=== PATIENT | female | born 1955 | race Caucasian/White ===

== ENCOUNTER 2022-01-13 13:59 | Emergency (ER) | payer MEDICARE, OTHER, SELFPAY ==
[2022-01-13 14:17] VITALS: BP 157/63; PULSE 96; RESP 17; TEMP 36.6; O2SAT 96; BMI 29.2
[2022-01-13 14:39] LABS: Appearance Urine UA CLEAR; Bilirubin Urine UA 1+ (NEGATIVE); Color Urine UA YELLOW; Glucose Urine UA NEGATIVE (Negative); Ketones Urine UA 1+ (NEGATIVE); Leukocyte Esterase Urine UA NEGATIVE (NEGATIVE); Nitrite Urine UA NEGATIVE (Negative); Occult Blood Urine UA NEGATIVE (Negative); Protein Urine UA 1+ (Negative); Specific Gravity Urine UA 1.015 (1.000-1.035); pH Urine UA 5.5 (4.5-8.0)
[2022-01-13 14:41] LABS: Ictotest Urine Negative (Negative)
[2022-01-13 14:54] LABS: Bacteria Urine Few (2-10); Culture Indicated Urine Cult Not Indicated; Hyaline Casts Urine 1-5/LPF; Mucus Urine 1+ (Negative); RBC Urine None Seen (0-5/HPF); Squamous Epithelial Cell Urine 0-1 /HPF (0-5/HPF); WBC Urine 0-1/HPF (0-5/HPF)
[2022-01-13 16:00] LABS: Hematocrit 29.1 % (36-46); Hemoglobin 9.6 g/dL (12.0-16.0); Mean Corpuscular HGB Conc 33.1 % (30-36); Mean Corpuscular Hemoglobin 24.6 PG (26-34); Mean Corpuscular Volume 74.5 fL (80-100); Platelet Count 60 X10^3/uL (150-400); Red Blood Cell Count 3.91 X10^6/uL (4.0-5.2)
[2022-01-13 16:06] LABS: Add Manual Diff / Slide Review YES
[2022-01-13 16:07] LABS: White Blood Cell Count 1.3 X10^3/uL (4.5-11.0)
[2022-01-13 16:08] LABS: Alanine Aminotransferase 28 IU/L (<35); Albumin 3.6 g/dL (3.5-5.0); Albumin Globulin Ratio 1.4 (1.0-2.8); Alkaline Phosphatase 97 U/L (38-126); Aspartate Aminotransferase 48 IU/L (14-36); BUN Creatinine Ratio 21.9 (6-22); Bilirubin Total 0.8 mg/dL (0.2-1.3); Blood Urea Nitrogen 16 mg/dL (7-17); Calcium 8.6 mg/dL (8.4-10.2); Carbon Dioxide 27 mmol/L (22-32); Chloride 93 mmol/L (98-107); Estimated Glomerular Filt Rate > 60 mL/min (>60); Globulin 2.5 g/dL (1.7-4.1); Glucose 82 mg/dL (80-110); HEMOLYSIS < 15 (0-50); Lipase 71 U/L (23-300); Potassium 4.2 mmol/L (3.4-5.1); Sodium 131 mmol/L (137-145); Total Protein 6.1 g/dL (6.3-8.2)
[2022-01-13 16:26] LABS: Neutrophils Absolute Manual 650 /uL (3000-5900); Total Cells Counted 50
[2022-01-13 16:27] LABS: Microcytosis 1+; Platelet Estimate Decreased on smear; Polychromasia 1+; RBC Morphology Normal Morphology
--- NOTE | 2022-01-13 16:31 | ED_ITS ---
HPI - Abdominal Pain General Chief Complaint: Abdominal Pain Stated Complaint: sent by UC, Abd mass per pt, chills, abd pain, h-a Time Seen by Provider: 01/13/22 15:58 Source: patient Mode of arrival: Ambulatory History of Present Illness HPI narrative: Patient is a 66-year-old female who presents with generalized weakness chills and some abdominal pain. She was referred here by the walk-in clinic concern for possible left upper quadrant mass. She says that the last week and half she has had some night sweats, she has been generally weak. She has had some difficulty walking. She has no nausea or vomiting. She generally does not feel. She also complains of some headache she has significant urinary urgency in the morning so much so that she sometimes does not make it to the toilet. Related Data Home Medications Medication Instructions Recorded Confirmed atorvastatin 20 mg tablet 20 mg PO DAILY 01/13/22 01/13/22 esomeprazole magnesium 40 mg 40 mg PO DAILY 01/13/22 01/13/22 capsule,delayed release famotidine 40 mg tablet (Pepcid) 40 mg PO DAILY 01/13/22 01/13/22 fluoxetine 10 mg capsule 10 mg PO DAILY 01/13/22 01/13/22 metoclopramide HCl 5 mg tablet 5 mg PO DAILY 01/13/22 01/13/22 metoprolol succinate 50 mg 50 mg PO DAILY 01/13/22 01/13/22 tablet,extended release 24 hr trazodone 50 mg tablet 50 mg PO DAILY 01/13/22 01/13/22 Previous Rx's Medication Instructions Recorded hydrocodone 5 mg-acetaminophen 325 1 tab PO Q6H PRN pain #20 tabs 01/13/22 mg tablet ondansetron 4 mg disintegrating 4 mg PO Q8H PRN nausea and 01/13/22 tablet vomiting #10 tabs Allergies Allergy/AdvReac Type Severity Reaction Status Date / Time No Known Drug Allergies Allergy Verified 01/13/22 14:22 Review of Systems Review of Systems ROS Unobtainable: All systems reviewed & are unremarkable except as noted in HPI and below Constitutional Constitutional: Denies anorexia, Denies headache(s), Reports lethargy, Reports night sweats and Reports poor appetite Eyes Eyes: Denies blurry vision ENT Ears, Nose, Mouth, and Throat: Denies vertigo, Denies dizziness and Denies headache(s) Cardiovascular Cardiovascular: Denies chest pain with activity, Reports lightheadedness and Denies dyspnea Respiratory Respiratory: Denies cough and Denies dyspnea Gastrointestinal Gastrointestinal: Reports as per HPI, Reports abdominal pain, Denies nausea and Denies vomiting Musculoskeletal Musculoskeletal: Denies back pain Neurologic Neurologic: Denies vertigo, Denies dizziness and Denies headache(s) Patient History Social History Smoking Status: Never smoker Smoking Status: Never smoker alcohol intake frequency: a few times a month Substance Use Type: does not use Exam Initial Vital Signs Initial Vital Signs: Vital Signs Temperature 97.8 F 01/13/22 14:17 Pulse Rate 96 H 01/13/22 14:17 Respiratory Rate 17 01/13/22 14:17 Blood Pressure 157/63 H 01/13/22 14:17 Pulse Oximetry 96 01/13/22 14:17 Oxygen Delivery Method 01/13/22 14:17 GENERAL: Alert week 66-year-old female HEENT: Head atraumatic,EOMI, pupils reactive, face symmetric, moist mucous membranes CARDIOVASCULAR: Regular rate and rhythm without murmurs, rubs or gallops. RESPIRATORY: Breath sounds equal bilaterally, no wheezes rales or rhonchi. ABDOMEN: Soft, splenomegaly felt normal bowel sounds EXTREMITIES: Normal range of motion, no clubbing or edema. Neurovascularly intact NEUROLOGICAL: Alert and oriented x4. [place] strength equal bilaterally good [id number] good [id number] bilaterally sensation intact and equal. Legs are mildly weak. SKIN: Warm, dry, no laceration, no petechiae, no rashes or lesions. Course Orders Ordered: Discontinued Medications Hydrocodone Bitart/Acetaminophen (Hydrocodone/Acet 5/325 Prepack) 1 bottle MISC SEEINSTR ONE Stop: 01/13/22 20:23 Last Admin: 01/13/22 20:50 Dose: 1 bottle Documented By: KRYSTINA Morphine Sulfate (Morphine 2 Mg/Ml Inj) 2 mg IV NOW ONE Stop: 01/13/22 19:13 Last Admin: 01/13/22 19:22 Dose: 2 mg Documented By: KRYSTINA Ondansetron HCl (Ondansetron 4 Mg Odt Prepack) 1 bottle MISC SEEINSTR ONE Stop: 01/13/22 20:23 Last Admin: 01/13/22 20:50 Dose: 1 bottle Documented By: KRYSTINA Vital Signs Vital signs: Vital Signs - 8 hr 01/13/22 14:17 01/13/22 16:53 Temperature 97.8 F 98.9 F Pulse Rate 96 H 94 H Respiratory Rate 17 20 Blood Pressure 157/63 H 159/73 H Pulse Oximetry 96 96 Oxygen Delivery Method Room Air Room Air MDM - Abdominal Pain Lab Data Result diagrams: 01/13/22 15:35 01/13/22 15:35 Labs: Lab Results 01/13/22 01/13/22 01/13/22 Range/Units 14:15 15:35 15:35 WBC 1.3 L* (4.5-11.0) X10^3/uL RBC 3.91 L (4.0-5.2) X10^6/uL Hgb 9.6 L (12.0-16.0) g/dL Hct 29.1 L (36-46) % MCV 74.5 L (80-100) fL MCH 24.6 L (26-34) PG MCHC 33.1 (30-36) % RDW 17.0 H (11.6-14.8) % Plt Count 60 L (150-400) X10^3/uL Neut % (Auto) Not Reportable Lymph % (Auto) Not Reportable [place] % (Auto) Not Reportable Eos % (Auto) Not Reportable Baso % (Auto) Not Reportable Lymph # (Auto) Not Reportable [place] # (Auto) Not Reportable Baso # (Auto) Not Reportable Total Counted 50 Seg Neutrophils % 46.0 (38-70) % Band Neutrophils % 4.0 (3-7) % Lymphocytes % (Manual) 20.0 L (25-45) % Monocytes % (Manual) 30.0 H (2-11) % Neutrophils # (Manual) 650 L (9040-9328) /uL Platelet Estimate Decreased on smear RBC Morphology Normal morphology Polychromasia 1+ H Microcytosis 1+ H Sodium 131 L (137-145) mmol/L Potassium 4.2 (3.4-5.1) mmol/L Chloride 93 L (98-107) mmol/L Carbon Dioxide 27 (22-32) mmol/L BUN 16 (7-17) mg/dL Creatinine 0.73 (0.52-1.04) mg/dL Estimated GFR > 60 (>60) mL/min BUN/Creatinine Ratio 21.9 (6-22) Glucose 82 (80-110) mg/dL Calcium 8.6 (8.4-10.2) mg/dL Total Bilirubin 0.8 (0.2-1.3) mg/dL AST 48 H (14-36) IU/L ALT 28 (<35) IU/L Alkaline Phosphatase 97 (38-126) U/L Total Protein 6.1 L (6.3-8.2) g/dL Albumin 3.6 (3.5-5.0) g/dL Globulin 2.5 (1.7-4.1) g/dL Albumin/Globulin Ratio 1.4 (1.0-2.8) Lipase 71 (23-300) U/L Urine Color Yellow Urine Appearance Clear Urine pH 5.5 (4.5-8.0) Ur Specific [place] 1.015 (1.000-1.035) Urine Protein 1+ H (Negative) Urine Glucose (UA) Negative (Negative) g/dL Urine Ketones 1+ H (NEGATIVE) Urine Occult Blood Negative (Negative) Urine Nitrate Negative (Negative) Urine Bilirubin 1+ H (NEGATIVE) Ur Bilirubin Confirm Negative (Negative) Urine Urobilinogen 1.0 (0.2) E.U./dL Ur Leukocyte Esterase Negative (NEGATIVE) Urine RBC None seen (0-5/HPF) Urine WBC 0-1/hpf (0-5/HPF) Ur Squamous Epith Cells 0-1 /hpf (0-5/HPF) Urine Bacteria Few (2-10) H (None) Hyaline Casts 1-5/lpf (None) Urine Mucus 1+ H (Negative) Ur Culture Indicated? Cult not indicated SARS-CoV-2 (PCR) (Negative) 01/13/22 Range/Units 17:30 WBC (4.5-11.0) X10^3/uL RBC (4.0-5.2) X10^6/uL Hgb (12.0-16.0) g/dL Hct (36-46) % MCV (80-100) fL MCH (26-34) PG MCHC (30-36) % RDW (11.6-14.8) % Plt Count (150-400) X10^3/uL Neut % (Auto) Lymph % (Auto) [place] % (Auto) Eos % (Auto) Baso % (Auto) Lymph # (Auto) [place] # (Auto) Baso # (Auto) Total Counted Seg Neutrophils % (38-70) % Band Neutrophils % (3-7) % Lymphocytes % (Manual) (25-45) % Monocytes % (Manual) (2-11) % Neutrophils # (Manual) (9551-7275) /uL Platelet Estimate RBC Morphology Polychromasia Microcytosis Sodium (137-145) mmol/L Potassium (3.4-5.1) mmol/L Chloride (98-107) mmol/L Carbon Dioxide (22-32) mmol/L BUN (7-17) mg/dL Creatinine (0.52-1.04) mg/dL Estimated GFR (>60) mL/min BUN/Creatinine Ratio (6-22) Glucose (80-110) mg/dL Calcium (8.4-10.2) mg/dL Total Bilirubin (0.2-1.3) mg/dL AST (14-36) IU/L ALT (<35) IU/L Alkaline Phosphatase (38-126) U/L Total Protein (6.3-8.2) g/dL Albumin (3.5-5.0) g/dL Globulin (1.7-4.1) g/dL Albumin/Globulin Ratio (1.0-2.8) Lipase (23-300) U/L Urine Color Urine Appearance Urine pH (4.5-8.0) Ur Specific [place] (1.000-1.035) Urine Protein (Negative) Urine Glucose (UA) (Negative) g/dL Urine Ketones (NEGATIVE) Urine Occult Blood (Negative) Urine Nitrate (Negative) Urine Bilirubin (NEGATIVE) Ur Bilirubin Confirm (Negative) Urine Urobilinogen (0.2) E.U./dL Ur Leukocyte Esterase (NEGATIVE) Urine RBC (0-5/HPF) Urine WBC (0-5/HPF) Ur Squamous Epith Cells (0-5/HPF) Urine Bacteria (None) Hyaline Casts (None) Urine Mucus (Negative) Ur Culture Indicated? SARS-CoV-2 (PCR) Negative (Negative) Imaging Data CT scan - head: Radiologist's Impression: CT Scan Report Signed Patient: Danielle Mckeon MR#: [id number] : 1955 Acct:[id number] Age/Sex: 66 / F Date of Service: 01/13/22 Loc: ED Accession Number: [id number] ?? Procedure: CT head/brain wo con Ordering Provider: Ibis Blake D.O. PROCEDURE:? CT HEAD/BRAIN WO CON ? INDICATIONS:? weakness luq mass ? TECHNIQUE:? Noncontrast 4.5 mm thick angled axial sections acquired from the foramen magnum to the vertex, with coronal and sagittal reformats.? For radiation dose reduction, the following was used:? automated exposure control, adjustment of mA and/or kV according to patient size.? ? COMPARISON:? None. ? FINDINGS:? Image quality:? Excellent.? ? CSF spaces:? Basal cisterns are patent.? No extra-axial fluid collections.? The ventricles are symmetric in size and shape.? ? Brain:? No intracranial bleeds or masses.? There is cerebral volume loss for age, with resultant ventricular and sulcal prominence.? There are periventricular and deep white matter chronic small vessel ischemic changes.? There is intracranial internal carotid artery atherosclerosis.? ? Skull and face:? Calvarium and visualized facial bones appear intact, without suspicious lesions.? ? Sinuses:? Visualized sinuses and mastoids are clear.? ? IMPRESSION:? No CT evidence of acute intracranial abnormalities. ? ? Dictated by: Enoch Myers M.D. on 01/13/2022 at 16:54? CT scan - abdomen/pelvis: Radiologist's Impression: Danielle Mckeon MR#: [id number] : 1955 Acct:[id number] Age/Sex: 66 / F Date of Service: 01/13/22 Loc: ED Accession Number: [id number] ?? Procedure: CT chest abd pel w con Ordering Provider: Ibis Blake D.O. PROCEDURE:? CT CHEST ABD PEL W CON ? INDICATIONS:? luq mass night sweats ? TECHNIQUE:? After the administration of intravenous contrast, 5 mm thick sections acquired from the lung apices to the symphysis.? 5 mm coronal and sagittal reformats were performed, with additional 7 mm MIP reformats through the lungs.? For radiation dose reduction, the following was used:? automated exposure control, adjustment of mA and/or kV according to patient size.? ? COMPARISON:? None. ? FINDINGS:? Image quality:? Excellent.? ? CHEST:? Lungs and pleura:? ? 3 millimeters solid nodule adjacent to oblique fissure on the left side in anterior left lower lobe is seen series 3, image 171. 4 millimeter solid nodule is seen in superior aspect of right middle lobe series 3, image 172 ? Scattered atelectasis in periphery of bilateral lung moreno are noted.? Biapical scarring is also seen.? No acute airspace opacities.? No pleural effusions or pn eumothorax.? Central and peripheral airways appear patent and normal in caliber.? ? Mediastinum:? Heart size is normal.? No pericardial effusion.? Extensive mediastinal lymphadenopathy is noted measures up to 1.1 cm in size in right paratracheal space series 2, image 29 and 1 cm in size in right hilar region series 2, image 32. Prominent prevascular node measures 1.1 cm in size is also seen series 2, image 28.? Large subcarinal node measures 1.5 cm in short axis diameter is noted series 2, image 37.? Thoracic aorta and central pulmonary arteries are normal in size.? Mild atherosclerotic disease in coronary vessels and thoracic aorta is seen.? Esophagus is normal in caliber.? No hiatal hernia.? ? Chest wall:? There is bilateral supraclavicular lymphadenopathy measures up to 1.2 cm in size in left supraclavicular space series 2, image 8. No gross axillary lymphadenopathy is noted by size criteria.? Asymmetrically enlarged right thyroid lobe is seen with hypodense nodules measures up to 9 millimeter in size. ? ? ABDOMEN:? Solid organs:? There is marked splenomegaly, no discrete splenic lesion is identified. ? Liver is normal in size .? Well-circumscribed hypodense areas in lateral per iphery of anterior segment right hepatic lobe is seen measures 1.9 x 1 cm in size series 2 image 68. No other hepatic lesion is noted.? Gallbladder is surgically absent.? Biliary system is non dilated.? Pancreas enhances normally.? No adrenal nodules.? Kidneys demonstrate normal size and enhancement, without hydronephrosis.? ? Peritoneum and bowel:? Bowel loops demonstrate normal wall thickness and caliber.? No free fluid or air.? ? Nodes and vessels:? There is extensive retroperitoneal lymphadenopathy with largest alysia mass seen in left periaortic space and measures 4.1 x 5.9 cm in size series 2, image 76. Left periaortic lymph no measures 4.9 x 3.4 cm in size is also seen at this level.? More inferiorly, a left periaortic lymph no measures up to 2.6 x 3.1 cm in size series 2, image 86.? No definite mesenteric lymphadenopathy by size criteria.? Multiple lymph nodes adjacent to splenic hilum are seen measures up to 1.6 x 1.8 cm in size.? Aorta and inferior vena cava are normal in size.? ? Miscellaneous:? No ventral hernias.? ? ? PELVIS:? Genitourinary:? Bladder wall thickness is normal.? ? Miscellaneous:? Right pelvic sidewall mass measures 1.6 x 2.6 cm in size series 2, image 113. Enlarged lymph nodes along bilateral iliac chain are also seen measures up to 1.7 x 1.2 cm in size series 2, image 106. No inguinal lymphadenopathy by size criteria.? No inguinal hernia. ? Bones:? No suspicious bony lesions.? No vertebral body compression fractures.? Grade 1 anterolisthesis of L4 on L5 is seen.? Degenerative endplate changes throughout thoracic and lumbar spine is seen. ? IMPRESSION:? 1. Extensive lymphadenopathy in bilateral supraclavicular space, mediastinum and bilateral hilar region, and extensive retroperitoneal lymphadenopathy and pelvic lymphadenopathy as described in detail above highly suggestive of systemic process such as lymphoma. 2. Markedly enlarged spleen, no discrete splenic lesion. 3.? Well-circumscribed hypodensity involving right hepatic lobe and likely represent benign process such as hepatic cyst. 4. 2 tiny solid nodule seen in right middle lobe and left lower lobe as described above and may represent benign process.? Metastatic lung nodule cannot be entirely excluded.? Follow-up CT chest in 6-12 months is recommended.? ? ? Dictated by: Enoch Myers M.D. on 01/13/2022 at 16:55 ? ? 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 She has palpable splenomegaly. CT confirms splenomegaly and multiple retrograde lymphadenopathy concern for new onset lymphoma. Patient is mildly weak but she is able to ambulate in the ED to the restroom multiple times without any difficulty. [place] They actually would like to go home. However consultation to [facility] has been placed and awaiting to call back. Patient now states that she actually did have a bone marrow biopsy with an oncologist a while back she was told that she did not have cancer. She would like to go back home to [place] and follow-up they are. At this time there is no emergency they do understand the urgency for it. [facility] did call Back agree that there is no emergency does need urgent follow-up and care. No issue with going back to [place]. 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 You have been prescribed narcotic medications, it does have acetaminophen/Tylenol/paracetamol in it, DO NOT TAKE MORE THAN 4,00mg in 24 hours of Tylenol. TRAMADOL DOES NOT CONTAIN TYLENOL 2. Please understand that we cannot provide further refills of narcotics, benzodiazepines or controlled substances through the ED and her pain management will need to be through your provider. 3. While on these medications you cannot drive or operate heavy machinery. 4. You cannot sign legal documents or perform any duties such as this. 5. As long as you're taking opiate pain medications he should also be taking a stool softener such as Colace, Dulcolax, MiraLAX or prune juice, to help avoid constipation. Prescriptions: New hydrocodone-acetaminophen 5-325 mg tablet 1 tab PO Q6H PRN (Reason: pain) Qty: 20 0RF ondansetron 4 mg tablet,disintegrating 4 mg PO Q8H PRN (Reason: nausea and vomiting) Qty: 10 0RF No Action atorvastatin 20 mg tablet 20 mg PO DAILY trazodone 50 mg tablet 50 mg PO DAILY metoprolol succinate 50 mg tablet extended release 24 hr 50 mg PO DAILY famotidine [Pepcid] 40 mg tablet 40 mg PO DAILY metoclopramide HCl 5 mg tablet 5 mg PO DAILY esomeprazole magnesium 40 mg capsule,delayed release(DR/EC) 40 mg PO DAILY fluoxetine 10 mg capsule 10 mg PO DAILY Referrals: Miscellaneous,Doctor, MD [Primary Care Provider] - Visit Report Forms: Patient Portal/API
--- NOTE | 2022-01-13 16:31 | DI.CT.S_ITS ---
PROCEDURE: CT HEAD/BRAIN WO CON INDICATIONS: weakness luq mass TECHNIQUE: Noncontrast 4.5 mm thick angled axial sections acquired from the foramen magnum to the vertex, with coronal and sagittal reformats. For radiation dose reduction, the following was used: automated exposure control, adjustment of mA and/or kV according to patient size. COMPARISON: None. FINDINGS: Image quality: Excellent. CSF spaces: Basal cisterns are patent. No extra-axial fluid collections. The ventricles are symmetric in size and shape. Brain: No intracranial bleeds or masses. There is cerebral volume loss for age, with resultant ventricular and sulcal prominence. There are periventricular and deep white matter chronic small vessel ischemic changes. There is intracranial internal carotid artery atherosclerosis. Skull and face: Calvarium and visualized facial bones appear intact, without suspicious lesions. Sinuses: Visualized sinuses and mastoids are clear. IMPRESSION: No CT evidence of acute intracranial abnormalities. Dictated by: Enoch Myers M.D. on 01/13/2022 at 16:54 Approved by: Enoch Myers M.D. on 01/13/2022 at 16:54
--- NOTE | 2022-01-13 16:38 | DI.CT.S_ITS ---
PROCEDURE: CT CHEST ABD PEL W CON INDICATIONS: luq mass night sweats TECHNIQUE: After the administration of intravenous contrast, 5 mm thick sections acquired from the lung apices to the symphysis. 5 mm coronal and sagittal reformats were performed, with additional 7 mm MIP reformats through the lungs. For radiation dose reduction, the following was used: automated exposure control, adjustment of mA and/or kV according to patient size. COMPARISON: None. FINDINGS: Image quality: Excellent. CHEST: Lungs and pleura: 3 millimeters solid nodule adjacent to oblique fissure on the left side in anterior left lower lobe is seen series 3, image 171. 4 millimeter solid nodule is seen in superior aspect of right middle lobe series 3, image 172 Scattered atelectasis in periphery of bilateral lung moreno are noted. Biapical scarring is also seen. No acute airspace opacities. No pleural effusions or pneumothorax. Central and peripheral airways appear patent and normal in caliber. Mediastinum: Heart size is normal. No pericardial effusion. Extensive mediastinal lymphadenopathy is noted measures up to 1.1 cm in size in right paratracheal space series 2, image 29 and 1 cm in size in right hilar region series 2, image 32. Prominent prevascular node measures 1.1 cm in size is also seen series 2, image 28. Large subcarinal node measures 1.5 cm in short axis diameter is noted series 2, image 37. Thoracic aorta and central pulmonary arteries are normal in size. Mild atherosclerotic disease in coronary vessels and thoracic aorta is seen. Esophagus is normal in caliber. No hiatal hernia. Chest wall: There is bilateral supraclavicular lymphadenopathy measures up to 1.2 cm in size in left supraclavicular space series 2, image 8. No gross axillary lymphadenopathy is noted by size criteria. Asymmetrically enlarged right thyroid lobe is seen with hypodense nodules measures up to 9 millimeter in size. ABDOMEN: Solid organs: There is marked splenomegaly, no discrete splenic lesion is identified. Liver is normal in size . Well-circumscribed hypodense areas in lateral periphery of anterior segment right hepatic lobe is seen measures 1.9 x 1 cm in size series 2 image 68. No other hepatic lesion is noted. Gallbladder is surgically absent. Biliary system is non dilated. Pancreas enhances normally. No adrenal nodules. Kidneys demonstrate normal size and enhancement, without hydronephrosis. Peritoneum and bowel: Bowel loops demonstrate normal wall thickness and caliber. No free fluid or air. Nodes and vessels: There is extensive retroperitoneal lymphadenopathy with largest alysia mass seen in left periaortic space and measures 4.1 x 5.9 cm in size series 2, image 76. Left periaortic lymph no measures 4.9 x 3.4 cm in size is also seen at this level. More inferiorly, a left periaortic lymph no measures up to 2.6 x 3.1 cm in size series 2, image 86. No definite mesenteric lymphadenopathy by size criteria. Multiple lymph nodes adjacent to splenic hilum are seen measures up to 1.6 x 1.8 cm in size. Aorta and inferior vena cava are normal in size. Miscellaneous: No ventral hernias. PELVIS: Genitourinary: Bladder wall thickness is normal. Miscellaneous: Right pelvic sidewall mass measures 1.6 x 2.6 cm in size series 2, image 113. Enlarged lymph nodes along bilateral iliac chain are also seen measures up to 1.7 x 1.2 cm in size series 2, image 106. No inguinal lymphadenopathy by size criteria. No inguinal hernia. Bones: No suspicious bony lesions. No vertebral body compression fractures. Grade 1 anterolisthesis of L4 on L5 is seen. Degenerative endplate changes throughout thoracic and lumbar spine is seen. IMPRESSION: 1. Extensive lymphadenopathy in bilateral supraclavicular space, mediastinum and bilateral hilar region, and extensive retroperitoneal lymphadenopathy and pelvic lymphadenopathy as described in detail above highly suggestive of systemic process such as lymphoma. 2. Markedly enlarged spleen, no discrete splenic lesion. 3. Well-circumscribed hypodensity involving right hepatic lobe and likely represent benign process such as hepatic cyst. 4. 2 tiny solid nodule seen in right middle lobe and left lower lobe as described above and may represent benign process. Metastatic lung nodule cannot be entirely excluded. Follow-up CT chest in 6-12 months is recommended. Dictated by: Enoch Myers M.D. on 01/13/2022 at 16:55 Approved by: Enoch Myers M.D. on 01/13/2022 at 17:05
[2022-01-13 16:53] VITALS: BP 159/73; PULSE 94; RESP 20; TEMP 37.2; O2SAT 96
[2022-01-13 17:53] LABS: COVID19 -Nasal RAPID Negative (Negative)
[2022-01-13] MEDS: MORPHINE 2 MG/ML INJ IV (19:22)
[2022-01-13 20:48] VITALS: BP 155/63; PULSE 70; RESP 20; TEMP 36.6; O2SAT 99
[2022-01-13] MEDS: ONDANSETRON 4 MG ODT PREPACK 1 BOTTLE MISC (20:50)
[2022-01-13] MEDS: HYDROCODONE/ACET 5/325 PREPACK 1 BOTTLE MISC (20:50)
== END 2022-01-13 20:48 | disposition home or self-care (01) ==
PROVIDERS: Emergency Provider Emergency Medicine
DX: C81.93 Hodgkin lymphoma, unspecified, intra-abdominal lymph nodes (principal); Z20.822 Contact with and (suspected) exposure to COVID-19
CPT/HCPCS: 36415; 70450; 71260; 74177; 80053; 81001; 83690; 85007; 85025; 87635; 96374; 99284; C9803; J2270